=== PATIENT | female | born 1945 | race African-American/Black ===

== ENCOUNTER → 2016-12-03 | Day surgery (SDC) | payer MEDICARE ==
[~2016-12-03] MED LIST: FENTANYL PF 100 MCG/2 ML VIAL. IV PRN; HYDROMORPHONE 2 MG/ML VIAL. IV PRN; IV RINGERS,LACTATED 1000ML 1,000 ML IV SCH; LIDOCAINE 1% 1 ML SYRINGE. ID PRN; MORPHINE SULFATE 2 MG/ML DISP.SYRIN. IV PRN; ONDANSETRON PF 4 MG/2 ML VIAL. IV PRN; PROCHLORPERAZINE 10 MG/2 ML VIAL. IV PRN; PROPOFOL 20 ML IV ONE
--- NOTE | 2016-12-03 10:27 | PDOC1 ---
HISTORY & PHYSICAL H&P Effie Bruner [id number] 1945 10/16/2016 02:30 PM 11/25 [employer] [facility] OUR PATIENTS COME FIRST [address] [place] [address] Ph. [phone] Patient: Effie Bruner Date of : 1945 Date: 10/16/2016 2:30 PM Historian: self Visit Type: Office Visit This 71 year old female presents for H/o colorectal polyp. History of Present Illness: 1. H/o colorectal polyp Prior screening: colonoscopy. Denies risk factors. Pertinent negatives include abdominal pain, change in bowel habits, change in stool caliber, constipation, decreased appetite, diarrhea, melena, nausea, rectal bleeding, vomiting, weight gain and weight loss. Additional information: No family history of Crohn's/colitis, Patient has family history of colon cancer, No NSAID /ASA use and h/o colon polyp twice before. Sister has large precancerous polyp. INTAKE COMMENTS: Intake Comments: Nurses Notes: Pt states she is here today for a screening colonoscopy pt last colonoscopy was performed in 2008 pt was asked to follow up in 10 years, pt states she would like to have a consult with Dr. Iqbal being that pt sister recently had a Pre Cancerous polyp removed. PROBLEM LIST: Problem Description Onset Date Chronic Notes Hyperlipidemia 06/09/2014 Y Mapped from KB Chronic Conditions table on 2013 by the ICD9 to SNOMED Bulk Mapping Utility. The mapped diagnosis code was Other and unspecified hyperlipidemia, 272.4, added by Victor Hugo House, with responsible provider Victor Hugo House MD. Onset date 06/09/2014; last addressed on 06/09/2014. PROBLEM LIST (not yet mapped to SNOMED-CT): Problem Description Onset Date Notes 05/17/2010 PAST MEDICAL/SURGICAL HISTORY (Detailed) Disease/disorder Onset Date Management Date Comments Total Hysterectomy (R) Breast Biopsy Reults-Benign Ceasarean Section x 2 Allergies Colonic Polyp Hyperlipidemia obesity Osteoporosis GYNECOLOGIC HISTORY: Patient is postmenopausal. Medications (Active): Started Medication Directions Instruction Stopped 05/23/2010 aspirin 81 mg Tab take 1 tablet (81MG) by ORAL route every day 05/17/2010 Fish Oil 1,000 mg Cap 1 bid 05/17/2010 Multiple Vitamin Tab take 1 tablet by ORAL route every day with food Allergies: Ingredient Reaction Medication Name Comment SIMVASTATIN myalgias REVIEW OF SYSTEMS System Neg/Pos Details Constitutional Negative Chills, fever, malaise, weight gain and weight loss. ENMT Negative Sore throat. Eyes Negative Double vision. Respiratory Negative Dyspnea and wheezing. Cardio Negative Chest pain and irregular heartbeat/palpitations. GI Positive See HPI. GI Negative Abdominal pain, change in bowel habits, change in stool caliber, constipation, decreased appetite, diarrhea, melena, nausea, see HPI, rectal bleeding and vomiting. Negative Dysuria and hematuria. Endocrine Negative Cold intolerance and heat intolerance. Psych Negative Anxiety. Integumentary Negative Hives and rash. MS Negative Joint pain. Nixon/Lymph Negative Easy bleeding and easy bruising. Allergic/Immuno Negative Food allergies. Reproductive Positive The patient is post-menopausal. VITAL SIGNS Time BP mm/Hg Pulse /min Resp /min Temp F Ht ft Ht in Ht cm Wt lb Wt kg BMI kg/ m2 BSA m2 O2 Sat% 2:43 PM 118/62 124 16 97.6 5.0 3.00 160.02 158.40 71.849 28.06 97 MEASURED BY Time Measured by 2:43 PM Rosalie Esparza PHYSICAL EXAM: Exam Findings Details Constitutional Normal Well developed. Eyes Normal Conjunctiva - Right: Normal, Left: Normal. Sclera - Right: Normal, Left: Normal. Nasopharynx Normal Lips/teeth/gums - Normal. Neck Exam Normal Inspection - Normal. Thyroid gland - Normal. Respiratory Normal Inspection - Normal. Auscultation - Normal. Cardiovascular Normal Regular rate and rhythm. No murmurs, gallops, or rubs. Vascular Normal Pulses - Carotids: Normal, Femoral: Normal, Dorsalis pedis: Normal. Abdomen Normal Inspection - Normal. Anterior palpation - No guarding. No abdominal tenderness. No hepatic enlargement. No splenic enlargement. No hernia. No Ascites. Skin Normal Inspection - Normal. Extremity Normal No edema. Psychiatric Normal Oriented to time, place, person, and situation. Appropriate mood and effect. Assessment/Plan # Detail Type Description 1. Assessment History of colon polyps (Z86.010). Patient Plan schedule colonoscopy at Plan Orders Further diagnostic evaluations ordered today include(s) Colonoscopy to be performed today. She is to schedule a follow-up visit with Mars Iqbal MD upon completion of work-up 2. Assessment Family history of colonic polyps (Z83.71). Electronically signed by: Mars Iqbal MD 10/16/2016 05:18 PM Document generated by: Mars Iqbal 10/16/2016 05:18 PM Zak Campbell MD, Family Practice; Victor Hugo House MD Internal Medicine; Neo Knox MD, Internal Medicine; Leslye Iqbal MD Internal Medicine; Mars Iqbal MD, Gastroenterology; Lalo Gar MD, Rheumatology, S. Khalif Ricci, Physical Medicine/Rehab J. Senait MCLEANN ------ 12/03/16 Patient seen and examined. No change in history and physical. MARS IQBAL MD Dec 03, 2016 10:27
--- NOTE | 2016-12-03 11:23 | PDOC4 ---
GI OP Report - Dr. Tello Date/Time DATE: 12/03/16 TIME: 11:21 Attending Physician Mars Tello MD Referring Physician Indications Personal history of colonic polyps Pre-Op See the Anesthesia note for documentation of the administered medications Procedures Colonoscopy Findings - Diverticulosis in the sigmoid colon. - One 10 mm polyp in the cecum. Biopsied. Plan - Discharge patient to home. - Patient has a contact number available for emergencies. The signs and symptoms of potential delayed complications were discussed with the patient. Return to normal activities tomorrow. Written discharge instructions were provided to the patient. - Resume regular diet. - Continue present medications. - Await pathology results. - Return to my office in 2 weeks. - Surgical resection of the colon to be considered after biopsy is reviewed. MARS TELLO MD Dec 03, 2016 11:23
[2016-12-03 11:45] VITALS: BP 112/56
--- NOTE | 2016-12-04 13:15 | PATHOLOGY ---
PATHOLOGY REPORT * * * * * * * * FINAL DIAGNOSIS: Colon biopsies, cecal polyp: - Tubular adenoma. COMMENT: There is no high grade dysplasia or evidence of malignancy. (JPM:all; d/t: 12/04/2016) REPORT ELECTRONICALLY SIGNED BY: Marcell Moody M.D. DATE/TIME: 12/04/2016 13:06 * * * * * * * * GROSS PATHOLOGY: Received in formalin labeled "María Bruner, biopsy cecal polyp," are four segments of srivastava soft tissue measuring 1.0 x 0.6 x 0.1 cm in aggregate dimensions and ranging from 0.1 to 0.6 cm in maximum dimension. The specimen is submitted entirely in cassette A1. (CAA; 12/03/2016) INITIAL CPT CODE(S): A; 85041 Professional services performed [place] [address] Technical services performed by [facility] at [address] [place] [address], [facility] [address], [place] [address]. SPECIMEN(S) RECEIVED: A.Biopsy cecal polyp CLINICAL HISTORY: History of colon polyps; cecal polyp PATIENT: MARÍA BRUNER /AGE: 5 1945 (Age: 71) PATIENT #: [id number] ALT CASE #: SPECIMEN COLLECTION DATE: 12/03/2016 SPECIMEN RECEIVED DATE: 12/03/2016 [facility] - [address] [place] [address] - PHONE: [phone] * * * END OF REPORT * * *
== END | disposition home or self-care (01) ==
LOC: SURG 09:17
PROVIDERS: ATTEND Internal Medicine Gastroenterology
DX: D12.0 Benign neoplasm of cecum (principal); K57.30 Diverticulosis of large intestine without perforation or abscess without bleeding; E78.00 Pure hypercholesterolemia, unspecified; I10 Essential (primary) hypertension; M19.90 Unspecified osteoarthritis, unspecified site
CPT/HCPCS: 45380; J2704; 88305

== ENCOUNTER → 2019-08-24 | Outpatient (CLI) | payer MEDICARE ==
[2016-12-03 11:45] VITALS: BP 112/56
--- NOTE | 2019-08-24 13:24 | RAD ---
EXAM: Left knee, 2 views. HISTORY: Pain. COMPARISON: None. FINDINGS: 2 views of the left knee are obtained. There is medial compartment joint space narrowing and moderate medial and mild lateral and patellofemoral compartment spurring. There is a trace joint effusion. IMPRESSION: Mild to moderate medial and mild lateral and patellofemoral compartment osteoarthritis of the left knee. Electronically signed by: Stephanie Novak MD (08/24/2019 1:21 PM) [facility]
== END | disposition home or self-care (01) ==
LOC: RAD 12:51
PROVIDERS: ATTEND Internal Medicine
DX: M17.12 Unilateral primary osteoarthritis, left knee (principal); M25.562 Pain in left knee; G89.29 Other chronic pain; E78.5 Hyperlipidemia, unspecified
CPT/HCPCS: 73560

== ENCOUNTER 2019-10-03 09:20 | Emergency (ER) | payer MEDICARE ==
[~2019-10-03] VITALS: Ht 160 cm; Wt 74.8 kg
[2019-10-03] MEDS ORDERED: IV NORMAL SALINE 1000ML BAG 1,000 ML IV ONE (09:45)
--- NOTE | 2019-10-03 09:59 | PHYS DOC ---
Past Medical History Past Medical History: High Cholesterol, Hypertension (RALPH DOMINGO APRN) Past Surgical History: , Hysterectomy (RALPH DOMINGO APRN) Alcohol Use: None Drug Use: None (RALPH DOMINGO APRN) Adult General Chief Complaint Chief Complaint: DEHYDRATION HPI HPI Patient is a 74 year old female with history of hypertension, high cholesterol, who presents to the ED today complaining of feeling "sluggish" this morning. Patient states she believes she is dehydrated. Denies any chest pain, nausea, vomiting, diarrhea. She reports she has history of hypertension and was taking amlodipine seen last year, she reports one and a half months ago her doctor put on metoprolol because her heart rate was fast, she reports she was also started HCTZ. She feels she could be dehydrated from the HCTZ. (RALPH DOMINGO APRN) Review of Systems Review of Systems Constitutional:Reports feeling "sluggish" Denies fever or chills [] Eyes: Denies change in visual acuity, redness, or eye pain [] HENT: Denies nasal congestion or sore throat [] Respiratory: Denies cough or shortness of breath [] Cardiovascular: No additional information not addressed in HPI [] GI: Denies abdominal pain, nausea, vomiting, bloody stools or diarrhea [] : Denies dysuria or hematuria [] Musculoskeletal: Denies back pain or joint pain [] Integument: Denies rash or skin lesions [] Neurologic: Denies headache, focal weakness or sensory changes [] All other systems were reviewed and found to be within normal limits, except as documented in this note. (RALPH DOMINGO APRN) Current Medications Current Medications Current Medications Medications (Trade) Dose Ordered Sig/Soraida Start Time Stop Time Status Last Admin Dose Admin Sodium Chloride 1,000 ml @ 1,000 mls/hr 1X ONCE 10/03/19 09:45 10/03/19 10:44 DC (OTILIO PAZ MD) Allergies Allergies Allergies Coded Allergies Type Severity Reaction Last Updated Verified prednisone Allergy Intermediate 10/03/19 Yes (OTILIO PAZ MD) Physical Exam Physical Exam Constitutional: Well developed, well nourished, no acute distress, non-toxic appearance. [] HENT: Normocephalic, atraumatic, bilateral external ears normal, oropharynx moist, no oral exudates, nose normal. [] Eyes: PERRLA, EOMI, conjunctiva normal, no discharge. [] Neck: Normal range of motion, no tenderness, supple, no stridor. [] Cardiovascular:Tachycardic, no murmur [] Lungs & Thorax: Bilateral breath sounds clear to auscultation [] Abdomen: Bowel sounds normal, soft, no tenderness, no masses, no pulsatile masses. [] Skin: Warm, dry, no erythema, no rash. [] Back: No tenderness, no CVA tenderness. [] Extremities: No tenderness, no cyanosis, no clubbing, ROM intact, no edema. [] Neurologic: Alert and oriented X 3, normal motor function, normal sensory function, no focal deficits noted. [] Psychologic: Affect normal, judgement normal, mood normal. [] (RALPH DOMINGO APRN) Current Patient Data Vital Signs Vital Signs Date Time Temp Pulse Resp B/P (MAP) Pulse Ox O2 Delivery O2 Flow Rate FiO2 10/03/19 13:22 87 16 148/68 (94) 94 Room Air 10/03/19 09:35 98.0 98.0 (OTILIO PAZ MD) Lab Values Laboratory Tests Test 10/03/19 09:33 10/03/19 11:22 Urine Collection Type Unknown Urine Color Yellow Urine Clarity Clear Urine pH 7.5 Urine Specific [place] 1.020 Urine Protein 30 mg/dL (NEG-TRACE) Urine Glucose (UA) Negative mg/dL (NEG) Urine Ketones (Stick) Negative mg/dL (NEG) Urine Blood Negative (NEG) Urine Nitrite Negative (NEG) Urine Bilirubin Negative (NEG) Urine Urobilinogen Dipstick 1.0 mg/dL (0.2 mg/dL) Urine Leukocyte Esterase Trace (NEG) Urine RBC 0 /HPF (0-2) Urine WBC 1-4 /HPF (0-4) Urine Squamous Epithelial Cells Mod /LPF Urine Amorphous Sediment Present /HPF Urine Bacteria 0 /HPF (0-FEW) Urine Hyaline Casts Many /HPF Urine Mucus Mod /LPF Urine Opiates Screen Neg (NEG) Urine Methadone Screen Neg (NEG) Urine Barbiturates Neg (NEG) Urine Phencyclidine Screen Neg (NEG) Urine Amphetamine/Methamphetamine Neg (NEG) Urine Benzodiazepines Screen Neg (NEG) Urine Cocaine Screen Neg (NEG) Urine Cannabinoids Screen Neg (NEG) Urine Ethyl Alcohol Neg (NEG) White Blood Count 7.2 x10^3/uL (4.0-11.0) Red Blood Count 4.37 x10^6/uL (3.50-5.40) Hemoglobin 13.5 g/dL (12.0-15.5) Hematocrit 39.4 % (36.0-47.0) Mean Corpuscular Volume 90 fL (79-100) Mean Corpuscular Hemoglobin 31 pg (25-35) Mean Corpuscular Hemoglobin Concent 34 g/dL (31-37) Red Cell Distribution Width 13.6 % (11.5-14.5) Platelet Count 227 x10^3/uL (140-400) Neutrophils (%) (Auto) 67 % (31-73) Lymphocytes (%) (Auto) 26 % (24-48) Monocytes (%) (Auto) 6 % (0-9) Eosinophils (%) (Auto) 1 % (0-3) Basophils (%) (Auto) 0 % (0-3) Neutrophils # (Auto) 4.8 x10^3/uL (1.8-7.7) Lymphocytes # (Auto) 1.9 x10^3/uL (1.0-4.8) Monocytes # (Auto) 0.5 x10^3/uL (0.0-1.1) Eosinophils # (Auto) 0.0 x10^3/uL (0.0-0.7) Basophils # (Auto) 0.0 x10^3/uL (0.0-0.2) Sodium Level 143 mmol/L (136-145) Potassium Level 3.8 mmol/L (3.5-5.1) Chloride Level 103 mmol/L (98-107) Carbon Dioxide Level 27 mmol/L (21-32) Anion Gap 13 (6-14) Blood Urea Nitrogen 13 mg/dL (7-20) Creatinine 0.8 mg/dL (0.6-1.0) Estimated GFR (Cockcroft-Gault) 84.8 BUN/Creatinine Ratio 16 (6-20) Glucose Level 119 mg/dL (70-99) H Calcium Level 9.0 mg/dL (8.5-10.1) Magnesium Level 2.2 mg/dL (1.8-2.4) Total Bilirubin 0.6 mg/dL (0.2-1.0) Aspartate Amino Transferase (AST) 20 U/L (15-37) Alanine Aminotransferase (ALT) 17 U/L (14-59) Alkaline Phosphatase 79 U/L (46-116) Creatine Kinase 96 U/L (26-192) Creatine Kinase MB (Mass) 0.7 ng/mL (0.0-3.6) Creatine Kinase MB Relative Index 0.7 % (0-4) Troponin I Quantitative < 0.017 ng/mL (0.000-0.055) UM-Pxy-S-Type Natriuretic Peptide 40 pg/mL (0-124) Total Protein 8.2 g/dL (6.4-8.2) Albumin 3.9 g/dL (3.4-5.0) Albumin/Globulin Ratio 0.9 (1.0-1.7) L Lipase 94 U/L (73-393) Thyroid Stimulating Hormone (TSH) 1.115 uIU/mL (0.358-3.74) Laboratory Tests 10/03/19 11:22 Laboratory Tests 10/03/19 11:22 (OTILIO PAZ MD) Lab Values Laboratory Tests Test 10/03/19 09:33 10/03/19 11:22 Urine Collection Type Unknown Urine Color Yellow Urine Clarity Clear Urine pH 7.5 Urine Specific [place] 1.020 Urine Protein 30 mg/dL (NEG-TRACE) Urine Glucose (UA) Negative mg/dL (NEG) Urine Ketones (Stick) Negative mg/dL (NEG) Urine Blood Negative (NEG) Urine Nitrite Negative (NEG) Urine Bilirubin Negative (NEG) Urine Urobilinogen Dipstick 1.0 mg/dL (0.2 mg/dL) Urine Leukocyte Esterase Trace (NEG) Urine RBC 0 /HPF (0-2) Urine WBC 1-4 /HPF (0-4) Urine Squamous Epithelial Cells Mod /LPF Urine Amorphous Sediment Present /HPF Urine Bacteria 0 /HPF (0-FEW) Urine Hyaline Casts Many /HPF Urine Mucus Mod /LPF Urine Opiates Screen Neg (NEG) Urine Methadone Screen Neg (NEG) Urine Barbiturates Neg (NEG) Urine Phencyclidine Screen Neg (NEG) Urine Amphetamine/Methamphetamine Neg (NEG) Urine Benzodiazepines Screen Neg (NEG) Urine Cocaine Screen Neg (NEG) Urine Cannabinoids Screen Neg (NEG) Urine Ethyl Alcohol Neg (NEG) White Blood Count 7.2 x10^3/uL (4.0-11.0) Red Blood Count 4.37 x10^6/uL (3.50-5.40) Hemoglobin 13.5 g/dL (12.0-15.5) Hematocrit 39.4 % (36.0-47.0) Mean Corpuscular Volume 90 fL (79-100) Mean Corpuscular Hemoglobin 31 pg (25-35) Mean Corpuscular Hemoglobin Concent 34 g/dL (31-37) Red Cell Distribution Width 13.6 % (11.5-14.5) Platelet Count 227 x10^3/uL (140-400) Neutrophils (%) (Auto) 67 % (31-73) Lymphocytes (%) (Auto) 26 % (24-48) Monocytes (%) (Auto) 6 % (0-9) Eosinophils (%) (Auto) 1 % (0-3) Basophils (%) (Auto) 0 % (0-3) Neutrophils # (Auto) 4.8 x10^3/uL (1.8-7.7) Lymphocytes # (Auto) 1.9 x10^3/uL (1.0-4.8) Monocytes # (Auto) 0.5 x10^3/uL (0.0-1.1) Eosinophils # (Auto) 0.0 x10^3/uL (0.0-0.7) Basophils # (Auto) 0.0 x10^3/uL (0.0-0.2) Sodium Level 143 mmol/L (136-145) Potassium Level 3.8 mmol/L (3.5-5.1) Chloride Level 103 mmol/L (98-107) Carbon Dioxide Level 27 mmol/L (21-32) Anion Gap 13 (6-14) Blood Urea Nitrogen 13 mg/dL (7-20) Creatinine 0.8 mg/dL (0.6-1.0) Estimated GFR (Cockcroft-Gault) 84.8 BUN/Creatinine Ratio 16 (6-20) Glucose Level 119 mg/dL (70-99) H Calcium Level 9.0 mg/dL (8.5-10.1) Magnesium Level 2.2 mg/dL (1.8-2.4) Total Bilirubin 0.6 mg/dL (0.2-1.0) Aspartate Amino Transferase (AST) 20 U/L (15-37) Alanine Aminotransferase (ALT) 17 U/L (14-59) Alkaline Phosphatase 79 U/L (46-116) Creatine Kinase 96 U/L (26-192) Creatine Kinase MB (Mass) 0.7 ng/mL (0.0-3.6) Creatine Kinase MB Relative Index 0.7 % (0-4) Troponin I Quantitative < 0.017 ng/mL (0.000-0.055) QQ-Lmr-V-Type Natriuretic Peptide 40 pg/mL (0-124) Total Protein 8.2 g/dL (6.4-8.2) Albumin 3.9 g/dL (3.4-5.0) Albumin/Globulin Ratio 0.9 (1.0-1.7) L Lipase 94 U/L (73-393) Thyroid Stimulating Hormone (TSH) 1.115 uIU/mL (0.358-3.74) Laboratory Tests 10/03/19 11:22 Laboratory Tests 10/03/19 11:22 (RALPH DOMINGO APRN) EKG EKG [address] Paz sinus rhythm, HR 85 no STEMI[] (RALPH DOMINGO APRN) Radiology/Procedures Radiology/Procedures []PROCEDURE: PORTABLE CHEST 1V PORTABLE CHEST 1V 10/03/2019 9:40 AM INDICATION: Weakness COMPARISON: None available TECHNIQUE: Portable frontal view of the chest is provided. FINDINGS: The cardiomediastinal silhouette is within normal limits. Lungs are clear. There are no significant pleural effusions. There is no pulmonary vascular congestion. No pneumothorax. IMPRESSION: There is no acute cardiopulmonary process. Electronically signed by: Cici Garner MD (10/03/2019 11:01 AM) [facility] DICTATED and SIGNED BY: CICI GARNER MD DATE: 10/03/19 1101 PROCEDURE: CT HEAD WO CONTRAST PQRS Compliance Statement: One or more of the following individualized dose reduction techniques were utilized for this examination: 1. Automated exposure control 2. Adjustment of the mA and/or kV according to patient size 3. Use of iterative reconstruction technique CT head without contrast 10/03/2019 10:58 AM INDICATION: Weakness COMPARISON: None available TECHNIQUE: Multiple axial CT images of the head were obtained from skull base through the vertex without intravenous contrast. FINDINGS: Head: Ventricles, sulci and basal cisterns are within normal limits. . Prominence of the bifrontal extra-axial spaces, likely chronic There is no hydrocephalus. Lopez-white matter differentiation is normal. There is no acute intracranial hemorrhage. There is no mass, mass effect or midline shift. Posterior fossa is normal in appearance. Visualized portions of the orbits are normal. Paranasal sinuses are well aerated. Mastoid air cells are well aerated. Scalp and calvaria are normal. IMPRESSION: No acute intracranial hemorrhage. Chronic appearing prominence of the bifrontal extra-axial spaces. Electronically signed by: Cici Garner MD (10/03/2019 11:12 AM) [facility] DICTATED and SIGNED BY: CICI GARNER MD DATE: 10/03/19 1112 (RALPH DOMINGO APRN) Course & Med Decision Making Course & Med Decision Making Pertinent Labs and Imaging studies reviewed. (See chart for details) This is a 74-year-old female patient presenting to the ED today complaining she is feeling sluggish since this morning and feels she could be dehydrated from her blood pressure medicine specifically hydrochlorothiazide which she was started on 1-1/2 months ago. EKG is negative, CT of the head is negative, CBC, CMP, troponin-negative for any acute findings. Urine analysis is noted for 30 of ketones, urine appears grossly contaminated. Vitals are stable. Unable to get an IV on patient for IV fluids, she opted for oral hydration. She was discharged home with recommendations for oral hydration including Gatorade. She has a PCP, instructed to follow-up next week. (RALPH DOMINGO APRN) Course & Med Decision Making Staff Physician Addendum: I was working in the ER during the course of this patient's visit. I was available for consultation as needed, but I was not directly involved in the care of this patient. (OTILIO PAZ MD) Dragon Disclaimer Dragon Disclaimer This electronic medical record was generated, in whole or in part, using a voice recognition dictation system. (RALPH DOMINGO APRN) Departure Departure Impression: Primary Impression: Dehydration Disposition: 01 HOME, SELF-CARE Condition: STABLE Referrals: BENIGNO MEJIA MD (PCP) follow up next week Patient Instructions: Dehydration, Adult Additional Instructions: You were evaluated in the emergency room for dehydration. We encourage you to increase your oral fluid intake especially drinks like Gatorade. Please follow- up with your doctor next week. Come back to the ED at any point symptoms worsen. RALPH DOMINGO APRN Oct 03, 2019 09:58 OTILIO PAZ MD Oct 03, 2019 16:44
[2019-10-03 10:23] LABS: BARBITURATES NEG (NEG); BENZODIAZEPINES NEG (NEG); CANNABINOIDS NEG (NEG); COCAINE NEG (NEG); METHADONE NEG (NEG); OPIATES NEG (NEG); PHENCYCLIDINE NEG (NEG)
[2019-10-03 10:26] LABS: AMPHETAMINE/METHAMPHETAMINE NEG (NEG)
--- NOTE | 2019-10-03 11:03 | RAD ---
PORTABLE CHEST 1V 10/03/2019 9:40 AM INDICATION: Weakness COMPARISON: None available TECHNIQUE: Portable frontal view of the chest is provided. FINDINGS: The cardiomediastinal silhouette is within normal limits. Lungs are clear. There are no significant pleural effusions. There is no pulmonary vascular congestion. No pneumothorax. IMPRESSION: There is no acute cardiopulmonary process. Electronically signed by: Paula Sheehan MD (10/03/2019 11:01 AM) [facility]
--- NOTE | 2019-10-03 11:15 | RAD ---
PQRS Compliance Statement: One or more of the following individualized dose reduction techniques were utilized for this examination: 1. Automated exposure control 2. Adjustment of the mA and/or kV according to patient size 3. Use of iterative reconstruction technique CT head without contrast 10/03/2019 10:58 AM INDICATION: Weakness COMPARISON: None available TECHNIQUE: Multiple axial CT images of the head were obtained from skull base through the vertex without intravenous contrast. FINDINGS: Head: Ventricles, sulci and basal cisterns are within normal limits. . Prominence of the bifrontal extra-axial spaces, likely chronic There is no hydrocephalus. Lopez-white matter differentiation is normal. There is no acute intracranial hemorrhage. There is no mass, mass effect or midline shift. Posterior fossa is normal in appearance. Visualized portions of the orbits are normal. Paranasal sinuses are well aerated. Mastoid air cells are well aerated. Scalp and calvaria are normal. IMPRESSION: No acute intracranial hemorrhage. Chronic appearing prominence of the bifrontal extra-axial spaces. Electronically signed by: Paula Sheehan MD (10/03/2019 11:12 AM) [facility]
[2019-10-03 11:37] LABS: BASO % 0 % (0-3); EOS % 1 % (0-3); HEMATOCRIT 39.4 % (36.0-47.0); HEMOGLOBIN 13.5 g/dL (12.0-15.5); LYMPH # 1.9 x10^3/uL (1.0-4.8); LYMPH % 26 % (24-48); MEAN CORPUSCULAR HEMOGLOBIN 31 pg (25-35); MEAN CORPUSCULAR HGB CONC 34 g/dL (31-37); MEAN CORPUSCULAR VOLUME 90 fL (79-100); MONO # 0.5 x10^3/uL (0.0-1.1); MONO % 6 % (0-9); NEUT # 4.8 x10^3/uL (1.8-7.7); NEUT % 67 % (31-73); PLATELET COUNT 227 x10^3/uL (140-400); RED BLOOD COUNT 4.37 x10^6/uL (3.50-5.40); RED CELL DISTRIBUTION WIDTH 13.6 % (11.5-14.5); WHITE BLOOD COUNT 7.2 x10^3/uL (4.0-11.0)
[2019-10-03 11:44] LABS: CREATININE 0.8 mg/dL (0.6-1.0); GFR 84.8; POTASSIUM 3.8 mmol/L (3.5-5.1)
[2019-10-03 11:50] LABS: ALBUMIN 3.9 g/dL (3.4-5.0); ALBUMIN/GLOBULIN RATIO 0.9 (1.0-1.7); MAGNESIUM 2.2 mg/dL (1.8-2.4); TOTAL BILIRUBIN 0.6 mg/dL (0.2-1.0); TOTAL PROTEIN 8.2 g/dL (6.4-8.2)
[2019-10-03 12:17] LABS: BILIRUBIN,URINE NEGATIVE (NEG); CLARITY,URINE CLEAR; COLOR,URINE YELLOW; NITRITE,URINE NEGATIVE (NEG); PH,URINE 7.5; PROTEIN,URINE 30 mg/dL (NEG-TRACE)
[2019-10-03 12:43] LABS: SQUAMOUS EPITHELIAL CELL,UR MOD /LPF
[2019-10-03 12:44] LABS: HYALINE CASTS, URINE MANY /HPF
[2019-10-03 12:45] LABS: AMORPHOUS SEDIMENT,UR PRESENT /HPF; BACTERIA,URINE 0 /HPF (0-FEW); RBC,URINE 0 /HPF (0-2)
[2019-10-03 13:22] VITALS: BP 148/68
--- NOTE | 2019-10-03 17:13 | EKG ---
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
== END 2019-10-03 13:24 | disposition home or self-care (01) ==
LOC: ER 09:20
DX: E86.0 Dehydration (principal); I10 Essential (primary) hypertension; E78.00 Pure hypercholesterolemia, unspecified; R51 Headache; Z88.5 Allergy status to narcotic agent
CPT/HCPCS: 36415; 70450; 71045; 80053; 80307; 81001; 82553; 83690; 83735; 83880; 84443; 84484; 85025; 87086; 93005; 99285-25